=== PATIENT | female | born 1985 ===

== ENCOUNTER → 2021-05-07 08:47 | Outpatient (BNVA) | payer OTHER, SELFPAY | PROVIDERS: PCP Internal Medicine; Visit Provider Dietitian, Registered | DX: K58.9 Irritable bowel syndrome, unspecified (principal) | CPT/HCPCS: 97802 ==

== ENCOUNTER → 2021-06-11 08:57 | Outpatient (BNVA) | payer OTHER, SELFPAY | PROVIDERS: PCP Family Medicine; Visit Provider Dietitian, Registered | DX: K58.9 Irritable bowel syndrome, unspecified (principal) | CPT/HCPCS: 97803 ==